=== PATIENT | male | born 1955 | race Two or more races ===

== ENCOUNTER 2019-09-23 11:08 | Emergency (ER) | payer SELFPAY ==
[~2019-09-23] VITALS: Ht 162.6 cm; Wt 71.7 kg
[2019-09-23 11:16] VITALS: Ht 162.6 cm; Wt 71.7 kg
[2019-09-23 12:09] LABS: CALCIUM 8.7 mg/dL (8.5-10.1); CARBON DIOXIDE 29.9 mmol/L (21-32); CHLORIDE SERUM 104 mmol/L (98-107); CREATININE SERUM 0.7 mg/dL (0.7-1.3); GFR1 > 60 mL/min; GLUCOSE SERUM 99 mg/dL (74-106); POTASSIUM SERUM 3.6 mmol/L (3.5-5.1); SODIUM SERUM 138 mmol/L (136-145)
[2019-09-23 12:13] LABS: ALKALINE PHOSPHATASE 97 U/L (46-116); ALT/SGPT 22 U/L (16-63); AST/SGOT 21 U/L (15-37); BILIRUBIN TOTAL 0.4 mg/dL (0.20-1.00); TOTAL PROTEIN, SERUM 7.2 g/dL (6.4-8.2)
[2019-09-23 12:14] LABS: ALBUMIN 3.3 g/dL (3.4-5.0)
[2019-09-23 12:18] LABS: BASOPHIL % 0.5 % (0-2); PLATELET COUNT 264 x10^3mcL (130-400); RED CELL DISTRIBUTION WIDTH 14.3 % (11.5-14.5)
[2019-09-23 12:51] VITALS: BP 116/84
[2019-09-23 13:43] LABS: UA SPECIFIC GRAVITY 1.025 (1.005-1.035); microscopic required? YES; urine erythrocyte NEGATIVE (NEGATIVE)
[2019-09-23 14:35] LABS: AMPHETAMINE QUAL UR NONE DETECTED (See below)
== END 2019-09-23 14:53 | disposition home or self-care (01) ==
LOC: ED 11:08
PROVIDERS: Emergency Medicine
DX: M79.10 Myalgia, unspecified site (principal); F17.210 Nicotine dependence, cigarettes, uncomplicated
CPT/HCPCS: 36415; G0480